=== PATIENT | female | born 1950 | race Caucasian/White ===

== ENCOUNTER → 2017-03-30 | Outpatient (CLI) | payer MEDICARE, BC ==
[~2017-03-30] MED LIST: ALEVE220 MG PO; ASPIRIN LO-DOSE81 MG PO; CITRACAL + D M1 EACH PO; NORCO 10-325 T1 EACH PO; OCUVITE SOFTGE1 EACH PO; PROVENTIL OR V6.7 GM INH; REFRESH PLUS1 EACH OPHTH; TEARGEN1 BOT OPHTH; VITAMIN D-32000 UNI1 PO; XALATAN2.5 ML OPHTH
== END | disposition disaster alternative care site (69) ==
LOC: GBCOE 07:12
DX: Z12.31 Encounter for screening mammogram for malignant neoplasm of breast (principal); Z91.89 Other specified personal risk factors, not elsewhere classified
CPT/HCPCS: G0202

== ENCOUNTER → 2017-05-02 | Outpatient (CLI) | payer MEDICARE, BC | END | disposition disaster alternative care site (69) | LOC: GRAD 10:07 | PROC: BP29YZZ Computerized Tomography (CT Scan) of Left Shoulder using Other Contrast (ICD-10-PCS; principal; 2017-05-02) | DX: M25.512 Pain in left shoulder (principal); M19.012 Primary osteoarthritis, left shoulder ==